=== PATIENT | male | born 1970 | race Caucasian/White ===

== ENCOUNTER 2022-10-06 09:24 | Day surgery (SDC) | payer OTHER ==
[2022-10-06] MEDS ORDERED: CEFAZOLIN SODIUM 2 GM/VIAL ONE (09:50)
[2022-10-06] MEDS ORDERED: Ringers Lactate 1,000 ML IV ONE (09:51)
[2022-10-06] MEDS ORDERED: BUPIVACAINE 0.25% PF 10 ML VIAL ONE (11:02)
[2022-10-06] MEDS ORDERED: MIDAZOLAM HCL 2 MG/2 ML INJ ONE (11:18)
[2022-10-06] MEDS ORDERED: propofoL 200 MG/20 ML VIAL IV ONE (11:18)
[2022-10-06] MEDS ORDERED: FENTANYL CITR 100 MCG/2 ML ONE ×2 (11:18→12:33)
[2022-10-06] MEDS ORDERED: ROCURONIUM 50 MG/5 ML VIAL IV ONE (11:18)
[2022-10-06] MEDS ORDERED: LIDOCAINE 2% MPF 5 ML VIAL ONE (11:19)
[2022-10-06] MEDS ORDERED: ONDANSETRON 4 MG/2 ML VIAL ONE ×2 (11:19→14:56)
[2022-10-06] MEDS ORDERED: KETOROLAC 30 MG/ML INJ ONE (13:01)
--- NOTE | 2022-10-06 13:03 | P.OP ---
Preoperative diagnosis: Umbilical Hernia Postoperative diagnosis: Umbilical Hernia Primary procedure: Laparoscopic Umbilical Hernia Repair with mesh Anesthesia: GETA + Local Estimated blood loss: <5cc Specimen: Hernia Contents Findings: ~ 2cm hernia defect Complications: None Implants: Bard Perfix Plug and Patch 11.4cm Round, Sorbafix Tacks Transferred to: Recovery Room Condition: Good
[2022-10-06] MEDS ORDERED: NEOSTIGMINE 1 MG/ML -10 ML VIAL ONE (13:06)
[2022-10-06] MEDS ORDERED: GLYCOPYRROLATE 0.2 MG/ML SYR ONE (13:06)
[2022-10-06] MEDS: HYDROMORPHONE HCL 1 MG/ML INJ ONE ×4 (13:15→13:45)
[2022-10-06] MEDS: MORPHINE 4 MG/ML SYR ONE ×2 (14:03→14:12)
[2022-10-06] MEDS ORDERED: Ringers Lactate 500 ML IV ONE (14:11)
[2022-10-06] MEDS ORDERED: HYDROCODONE/APAP 7.5/325 MG TAB ONE (14:49)
--- NOTE | 2022-10-06 15:31 | OP ---
Date of Procedure: 10/06/2022 Surgeon: Rubens Wright MD, Preoperative Diagnosis: Umbilical hernia. Postoperative Diagnosis: Umbilical hernia. Procedure Performed: Laparoscopic umbilical hernia repair with mesh. Anesthesia: General endotracheal plus local with 0.25% Marcaine. Estimated Blood Loss: Less than 5 cc. Specimens: Hernia contents. Findings: Approximately 2 cm hernia defect at the umbilical position. Complications: None. Implants: Bard Ventralight ST mesh with Echo Positioning System, 11.4 cm round mesh utilized and Sor baFix absorbable fixation tacks. Disposition: Patient was transferred to recovery room in good condition. Procedure In Detail: After informed consent was obtained, patient was brought to the operating room, prepped and draped in the usual sterile fashion. After adequate anesthesia was achieved, an area of the left upper quadrant was anesthetized with 0.25% Marcaine, and sharply incised. A 5 mm trocar wa s placed under direct visualization without evidence of complication. Insufflation was obtained to 1 5 mmHg at this time. There was no injury of vital structures upon entry into the abdomen. A hernia defect was appreciated with omentum entrapped within and incarcerated within the defect. At this poi nt, I inspected the area of the left lower quadrant. This was similarly anesthetized, sharply incise d. A 12 mm trocar was placed under direct vision without evidence of complication. I then proceeded to use the LigaSure device to take down an omental incarcerated hernia in the umbilical position wit hout evidence of complication. This was reduced back to the normal anatomic position. I then remove d the preperitoneal fat which was in the periumbilical position and placed in the EndoCatch bag, ashley filomena through the umbilical trocar site for pathologic examination. The LigaSure device was utilized f or this purpose. Ultimately, I sent this off for pathologic examination. I then sized the 11.4 cm B jennifer Ventralight mesh and brought it onto the field. At this point, an Endo stitch with the V-Loc 0 s uture was then placed into the field and I sewed close to the hernia defect, imbricating the hernia s ac at this point with good approximation of tissues. I then used a Garima suture passer to deploy a Bard Ventralight ST mesh with Echo positioning System in the midline position without eviden ce of complication. At this point, the SorbaFix absorbable fixation tacks were used to secure the 11 .4 cm mesh to the anterior abdominal wall without evidence of complication with good apposition of ti ssues. Total of 45 tacks were utilized at this point. I then removed the deployment system after a double crown was placed and the mesh was found to be in good position at this point. I then proceede d to inspect the 12 mm trocar site. At this point, I noted no hemostasis was required. I closed the 12 mm trocar site using a Adolfo-Elidia suture passer with 0 Vicryl in an interrupted fashion with good approximation of tissues. I then desufflated the abdomen under direct visualization without ev idence of complication. All skin incisions were then copiously irrigated and closed with 4-0 Monocry l in a running fashion. Dermabond was placed over top. The patient tolerated the procedure without evidence of any complication and transferred to PACU in good condition. All counts were correct at t he end of the case. KALE/JALEESA Voice ID: [id number] Report ID: [id number]
[2022-10-06 15:47] VITALS: BP 126/77; TEMP 97.3; O2SAT 96
== END 2022-10-06 15:45 | disposition home or self-care (01) ==
LOC: OR 09:24
PROVIDERS: ATTEND Surgery
PROC: 0WUF4JZ Supplement Abdominal Wall with Synthetic Substitute, Percutaneous Endoscopic Approach (ICD-10-PCS; principal; 2022-10-06 11:15)
DX: K42.9 Umbilical hernia without obstruction or gangrene (principal)
CPT/HCPCS: 80048; 36415; 88302; 49593; J2704; J2710; J2001; J2250; J3010 ×2; J1170 ×2; J2405 ×2; J7120; C1781